=== PATIENT | male | born 1950 | race Caucasian/White ===

== ENCOUNTER → 2017-03-19 | Outpatient (CLI) | payer BC ==
[~2017-03-19] MED LIST: ALL180 PO; AMB5 PO; FLM4 PO; FLNIN NAE; POLY335025 PO
[2017-03-19 09:39] LABS: BASO % 0.2 %; BASO ABS # 0.01 K/uL (0-0.2); COMPLETE YES; HEMATOCRIT 39.1 % (42-52); IG% 0.4 %; LYMPH % 28.1 %; LYMPH ABS # 1.47 K/uL (1.2-3.4); MEAN CELL VOLUME 92.2 fL (80-100); MEAN CORPUSCULAR HEMOGLOBIN 32.3 pg (25-34); MEAN PLATELET VOLUME 9.8 fL (7.4-10.4); MONO % 11.3 %; PLATELET COUNT 226 K/uL (130-400); RED BLOOD COUNT 4.24 M/uL (4.7-6.1); WHITE BLOOD COUNT 5.23 K/uL (4.8-10.8)
[2017-03-19 10:03] LABS: ALT/SGPT 23 U/L (12-78); AST/SGOT 18 U/L (15-37); BLOOD UREA NITROGEN 15 mg/dl (7-18); BUN/CREATININE RATIO 16.4 (10-20); CARBON DIOXIDE 28 mmol/L (21-32); CHLORIDE 107 mmol/L (98-107); CREATININE 0.89 mg/dl (0.60-1.40); GLUCOSE 93 mg/dl (70-99); POTASSIUM 3.8 mmol/L (3.5-5.1); SODIUM 140 mmol/L (136-145)
[2017-03-19 10:08] LABS: ALB/GLOB RATIO 1.1 (0.9-2); ALKALINE PHOSPHATASE 63 U/L (45-117); CHOLESTEROL 135 mg/dl (0-200); CHOLESTEROL/HDL RATIO 2.7; HDL CHOLESTEROL 50 mg/dl; LDL CHOLESTEROL CALCULATED 70 mg/dl; TRIGLYCERIDES 73 mg/dl (0-150); VERY LOW DENSITY LIPOPROT CALC 15 mg/dl
== END | disposition home or self-care (01) ==
LOC: C.LAB1850 07:32
PROVIDERS: ATTEND Internal Medicine
DX: E78.5 Hyperlipidemia, unspecified (principal); D50.9 Iron deficiency anemia, unspecified; Z13.1 Encounter for screening for diabetes mellitus; N40.0 Benign prostatic hyperplasia without lower urinary tract symptoms

== ENCOUNTER → 2017-08-10 | Outpatient (CLI) | payer OTHER, BC ==
[2017-08-10 09:29] LABS: EOS ABS # 0.12 K/uL (0-0.5); HEMATOCRIT 42.4 % (42-52); HEMOGLOBIN 14.3 g/dL (14.0-18.0); IG# 0.02 K/uL (0.00-0.02); LYMPH ABS # 1.57 K/uL (1.2-3.4); MEAN CELL VOLUME 94.4 fL (80-100); MEAN CORPUSCULAR HEMOGLOBIN 31.8 pg (25-34); MEAN CORPUSCULAR HGB CONC 33.7 g/dl (32-36); MEAN PLATELET VOLUME 9.9 fL (7.4-10.4); MONO % 12.7 %; MONO ABS # 0.77 K/uL (0.11-0.59); NEUT ABS # 3.56 K/uL (1.4-6.5); PLATELET COUNT 242 K/uL (130-400); RED CELL DISTRIBUTION WIDTH SD 44.9 fL (36.4-46.3); WHITE BLOOD COUNT 6.04 K/uL (4.8-10.8)
[2017-08-10 10:04] LABS: ALBUMIN 3.3 gm/dl (3.4-5.0); ALT/SGPT 24 U/L (12-78); AST/SGOT 16 U/L (15-37); BLOOD UREA NITROGEN 12 mg/dl (7-18); CALCIUM 8.5 mg/dl (8.5-10.1); CARBON DIOXIDE 28 mmol/L (21-32); CREATININE 0.93 mg/dl (0.60-1.40); GLUCOSE 102 mg/dl (70-99); POTASSIUM 3.8 mmol/L (3.5-5.1); SODIUM 136 mmol/L (136-145)
[2017-08-10 10:06] LABS: ALKALINE PHOSPHATASE 79 U/L (45-117)
[2017-08-13 13:23] LABS: QUANTIF MITOGEN-NIL 6.33 IU/ML; QUANTIFERON NEGATIVE (NEGATIVE); QUANTIFERON NIL 0.08 IU/ML
== END | disposition home or self-care (01) ==
LOC: C.LAB1850 08:31
PROVIDERS: ATTEND Registered Nurse
DX: K50.90 Crohn's disease, unspecified, without complications (principal)

== ENCOUNTER → 2017-08-17 | Outpatient (CLI) | payer BC ==
--- NOTE | 2017-08-17 13:41 | DIAGNOSTIC IMAGING REPORT ---
KUB CLINICAL HISTORY: History of small bowel obstruction. FINDINGS: 2 AP supine abdominal radiographs are compared to study dated 03/25/2014 and correlated with abdominal CT dated 12/08/2013. There is a nonobstructed abdominal bowel gas pattern noting moderate fecal retention in the right colon. Suture material projects over the left mid abdomen. An indeterminant rectangle density projects over the left midabdomen and measures up to 2.4 cm. An additional indeterminant density projecting over the left mid abdomen measures up to 3.7 cm. Mesh material is present in the mid to lower abdomen. No abnormal abdominal calcifications are identified. The bony structures appear intact. IMPRESSION: 1. Nonobstructed abdominal bowel gas pattern noting moderate colonic fecal retention. 2. There are 2 indeterminant densities projecting over the left midabdomen which are new from 2014 as above. Clinical correlation will be required. Electronically signed by: Vinay Brewer M.D. 08/17/2017 1:39 PM Dictated Date/Time: 08/17/2017 1:34 PM
== END | disposition home or self-care (01) ==
LOC: C.RAD 13:14
PROVIDERS: ATTEND Internal Medicine Gastroenterology
DX: R19.07 Generalized intra-abdominal and pelvic swelling, mass and lump (principal); K59.00 Constipation, unspecified; Z87.19 Personal history of other diseases of the digestive system

== ENCOUNTER → 2017-08-24 | Outpatient (CLI) | payer BC ==
--- NOTE | 2017-08-24 14:18 | DIAGNOSTIC IMAGING REPORT ---
KUB CLINICAL HISTORY: Small bowel obstruction. Patient ingested patency capsule 30 hours ago. COMPARISON STUDY: KUB August 17, 2017. FINDINGS: Note is again made of a 2.5 cm left mid abdomen radiodensity which is similar in position to the finding shown on exam of August 17, 2017. The capsule has partially dissolved. An adjacent 2.8 cm peripherally calcified abnormality is again noted. There is no radiographic evidence for a bowel obstruction. Several bowel anastomoses are noted. There is a moderate amount of stool within the colon. IMPRESSION: 1. Patency capsule projecting over the left mid abdomen which has partially dissolved. Although similar in position to exam of August 17, 2017, this likely reflects a new capsule. The previous capsule has likely dissolved. It is unclear whether this capsule is within the small bowel or descending colon. However, this represents an abnormal study. 2. Redemonstration of an adjacent 2.8 cm calcified abnormality which is indeterminate although could reflect an enterolith and may be related to holdup of the patency capsule. A CT of the abdomen might be considered. Electronically signed by: Baljinder Jenkins M.D. 08/24/2017 2:17 PM Dictated Date/Time: 08/24/2017 2:12 PM
== END | disposition home or self-care (01) ==
LOC: C.RAD 13:32
PROVIDERS: ATTEND Internal Medicine Gastroenterology
DX: K56.600 Partial intestinal obstruction, unspecified as to cause (principal)

== ENCOUNTER → 2017-11-02 | Outpatient (CLI) | payer BC ==
[2017-11-02 14:14] LABS: BLOOD UREA NITROGEN 12 mg/dl (7-18); CREATININE 0.94 mg/dl (0.60-1.40)
== END | disposition home or self-care (01) ==
LOC: C.LAB1850 11:53
PROVIDERS: ATTEND Physician Assistant
DX: H90.41 Sensorineural hearing loss, unilateral, right ear, with unrestricted hearing on the contralateral side (principal)

== ENCOUNTER → 2017-11-05 | Outpatient (CLI) | payer BC ==
[~2017-11-05] MED LIST changes: +GADAVIST IV PRN
--- NOTE | 2017-11-05 10:20 | DIAGNOSTIC IMAGING REPORT ---
BRAIN COMBO FOR IAC CLINICAL HISTORY: RT SNHL hearing loss TECHNIQUE: MRI multi axial acquisition pre and post gadolinium enhancement COMPARISON STUDY: None FINDINGS: Signal characteristics of the cerebellar as well as cerebral hemispheres are unremarkable. Ventricular system is midline. Diffusion-weighted images are negative for an acute ischemic insult. The internal auditory canals are symmetric. The 7th and 8th nerves are unremarkable. Sella and parasellar regions are within normal limits. Pituitary is unremarkable. Ventricular system is midline. There is again no abnormal postcontrast enhancement. IMPRESSION: Normal study The above report was generated using voice recognition software. It may contain grammatical, syntax or spelling errors. Electronically signed by: Sherif Byers M.D. 11/05/2017 10:19 AM Dictated Date/Time: 11/05/2017 10:14 AM
== END | disposition home or self-care (01) ==
LOC: C.MRI 08:46
PROVIDERS: ATTEND Physician Assistant
DX: H90.41 Sensorineural hearing loss, unilateral, right ear, with unrestricted hearing on the contralateral side (principal)